=== PATIENT | female | born 1965 | race Caucasian/White ===

== ENCOUNTER → 2017-06-20 | Outpatient (CLI) | payer OTHER ==
[2016-08-22 07:00] VITALS: BP 137/71
[~2017-06-20] MED LIST: HYDR-1172 PO; HYDR-79 PO; KETO10TA PO; LEVO500T8 PO
--- NOTE | 2017-06-20 13:11 | KCIC ---
Right ankle and right foot radiograph June 20, 2017 INDICATION: Right foot and ankle pain COMPARISON: None available TECHNIQUE: 3 views the right foot and 3 views of the right ankle are provided. FINDINGS: There is no acute fracture or dislocation. Plantar and posterior calcaneal enthesophytes are present. Mild osteophytosis at the talonavicular articulation. Bone mineralization is within normal limits. Joint spaces are maintained. There is no soft tissue gas or osseous erosion. Tibial plafond and talar dome are intact. Ankle mortise is congruent. Reticulation of the subcutaneous soft tissues is suggestive of diffuse edema. IMPRESSION: No acute fracture or dislocation involving the right ankle and right foot. Posterior and plantar calcaneal enthesophytes are present. Diffuse subcutaneous edema. Electronically signed by: Cira Silvestre MD (06/20/2017 1:08 PM) [id number]
== END | disposition home or self-care (01) ==
LOC: KCIC 11:59
PROVIDERS: ATTEND Family Medicine
DX: M25.571 Pain in right ankle and joints of right foot (principal); R60.0 Localized edema
CPT/HCPCS: 73610; 73630

== ENCOUNTER 2019-04-29 07:24 | Emergency (ER) | payer OTHER ==
[~2019-04-29] VITALS: Ht 162.6 cm; Wt 108.9 kg
[~2019-04-29 07:24] MED LIST changes: -HYDR-1172 PO; -HYDR-79 PO; +HYDROCODONE-IB1 EAC3 PO; +HYDROCODONE-IB1 EACH PO
[2019-04-29 08:40] LABS: BASO % 0 % (0-3); EOS # 0.5 x10^3/uL (0.0-0.7); EOS % 4 % (0-3); HEMATOCRIT 43.3 % (36.0-47.0); HEMOGLOBIN 14.5 g/dL (12.0-15.5); LYMPH % 17 % (24-48); MEAN CORPUSCULAR HEMOGLOBIN 31 pg (25-35); MEAN CORPUSCULAR HGB CONC 34 g/dL (31-37); MEAN CORPUSCULAR VOLUME 92 fL (79-100); MONO # 0.9 x10^3/uL (0.0-1.1); MONO % 7 % (0-9); NEUT # 8.8 x10^3/uL (1.8-7.7); NEUT % 72 % (31-73); PLATELET COUNT 221 x10^3/uL (140-400); RED CELL DISTRIBUTION WIDTH 14.7 % (11.5-14.5); WHITE BLOOD COUNT 12.4 x10^3/uL (4.0-11.0)
--- NOTE | 2019-04-29 08:42 | PHYS DOC ---
Past Medical History Past Medical History: CVA, DVT, High Cholesterol, MRSA, TIA, Other Additional Past Medical Histor: De Santiago's palsy, OBESE, DERMATITIS Past Surgical History: Hysterectomy Additional Past Surgical Histo: Right eye, SINUS Alcohol Use: None Drug Use: None Adult General Chief Complaint Chief Complaint: LOWER EXTREMITY SWELLING HPI HPI Patient is a 53-year-old female who presents to the emergency department for evaluation. She states she normally has pedal edema, and normally wears compression stockings, but about 2 weeks ago, began developing swelling in her foot which was larger than normal, to the point that she was unable to wear compression stockings. She states that she has developed pain in her left medial calf, and has now extended up to the mid and distal thigh. She denies any numbness or weakness, or any prolonged immobilization. She has had a prior stroke in the past, and takes clopidogrel denies any chest pain or shortness of breath, dizziness or lightheadedness. She has not had any fevers or chills. Palpation and movement of the affected areas worsen her pain. There are no alleviating factors to her symptoms. Review of Systems Review of Systems Constitutional: Denies fever or chills [] Eyes: Denies change in visual acuity, redness, or eye pain [] HENT: Denies nasal congestion or sore throat [] Respiratory: Denies cough or shortness of breath [] Cardiovascular: The patient denies any shortness of breath, chest pain, palpitations, or orthopnea [] GI: Denies abdominal pain, nausea, vomiting, bloody stools or diarrhea [] : Denies dysuria or hematuria [] Musculoskeletal: Denies back pain or joint pain [] Integument: Denies rash or skin lesions, except as noted on the left leg [] Neurologic: Denies headache, focal weakness or sensory changes [] Endocrine: Denies polyuria or polydipsia [] All other systems were reviewed and found to be within normal limits, except as documented in this note. Current Medications Current Medications Current Medications Medications (Trade) Dose Ordered Sig/Diego Start Time Stop Time Status Last Admin Dose Admin Cephalexin HCl (Keflex) 500 mg 1X ONCE 04/29/19 09:30 04/29/19 09:43 DC 04/29/19 09:52 500 MG Rivaroxaban (Xarelto) 15 mg 1X ONCE 04/29/19 10:00 04/29/19 10:01 04/29/19 09:52 15 MG Allergies Allergies Allergies Coded Allergies Type Severity Reaction Last Updated Verified azithromycin Allergy Intermediate 08/18/16 Yes Physical Exam Physical Exam PHYSICAL EXAM: CONSTITUTIONAL: Well developed, well nourished HEAD: normocephalic, atraumatic EENT: PERRL, EOMI. Conjunctivae normal color, sclerae non-icteric; moist mucous membranes. NECK: Supple, non-tender; no meningismus. LUNGS: Lungs CTA, breathing even and unlabored. Normal air movement. HEART: Regular rate and rhythm, no murmur CHEST: No deformity; non-tender ABDOMEN: The abdomen is soft, and non-tender, no masses or bruits. EXTREM: Normal ROM; no deformity, Normal pulses palpable in all extremities. There is mild bilateral pedal edema. There is erythema on the medial left calf, extending towards the mid and distal left thigh, with a nodularity/palpable cord, in the area of erythema. There is tenderness to palpation in this area. There is a strong dorsalis pedis pulse. The remainder the extremities are otherwise unremarkable. SKIN: No rash; no diaphoresis NEURO: Alert; normal speech and cognition; CN's grossly intact; strength grossly intact without focal deficit. BACK: No CVA TTP. Current Patient Data Vital Signs Vital Signs Date Time Temp Pulse Resp B/P (MAP) Pulse Ox O2 Delivery O2 Flow Rate FiO2 04/29/19 09:13 86 18 171/81 (111) 96 Room Air 04/29/19 07:49 98.0 98.0 Lab Values Laboratory Tests Test 04/29/19 08:30 White Blood Count 12.4 x10^3/uL (4.0-11.0) H Red Blood Count 4.70 x10^6/uL (3.50-5.40) Hemoglobin 14.5 g/dL (12.0-15.5) Hematocrit 43.3 % (36.0-47.0) Mean Corpuscular Volume 92 fL (79-100) Mean Corpuscular Hemoglobin 31 pg (25-35) Mean Corpuscular Hemoglobin Concent 34 g/dL (31-37) Red Cell Distribution Width 14.7 % (11.5-14.5) H Platelet Count 221 x10^3/uL (140-400) Neutrophils (%) (Auto) 72 % (31-73) Lymphocytes (%) (Auto) 17 % (24-48) L Monocytes (%) (Auto) 7 % (0-9) Eosinophils (%) (Auto) 4 % (0-3) H Basophils (%) (Auto) 0 % (0-3) Neutrophils # (Auto) 8.8 x10^3/uL (1.8-7.7) H Lymphocytes # (Auto) 2.0 x10^3/uL (1.0-4.8) Monocytes # (Auto) 0.9 x10^3/uL (0.0-1.1) Eosinophils # (Auto) 0.5 x10^3/uL (0.0-0.7) Basophils # (Auto) 0.0 x10^3/uL (0.0-0.2) Erythrocyte Sedimentation Rate 23 (0-25) Prothrombin Time 12.6 SEC (11.7-14.0) Prothrombin Time INR 1.0 (0.8-1.1) Activated Partial Thromboplast Time 27 SEC (24-38) Sodium Level 145 mmol/L (136-145) Potassium Level 3.7 mmol/L (3.5-5.1) Chloride Level 108 mmol/L (98-107) H Carbon Dioxide Level 27 mmol/L (21-32) Anion Gap 10 (6-14) Blood Urea Nitrogen 12 mg/dL (7-20) Creatinine 0.9 mg/dL (0.6-1.0) Estimated GFR (Cockcroft-Gault) 65.5 Glucose Level 130 mg/dL (70-99) H Calcium Level 8.7 mg/dL (8.5-10.1) C-Reactive Protein, Quantitative 37.0 mg/L (0-3.3) H Laboratory Tests 04/29/19 08:30 Laboratory Tests 04/29/19 08:30 EKG EKG [] Radiology/Procedures Radiology/Procedures [PROCEDURE: VENOUS LOWER EXTREMITY LEFT Examination: Left Lower Extremity Venous Doppler Ultrasound History: Left leg pain, redness Comparison: 01/07/2014 Procedure: Garcia scale, color flow 2D and spectal waveform analysis images are obtained with and without compression in the area of the common femoral vein, superficial femoral vein - femoral vein junction, main femoral vein (superficial femoral vein) and popliteal vein. Veins of the proximal calf are also imaged. Findings: There is echogenicity identified in the left greater saphenous vein from mid thigh to ankle likely occlusive thrombus. Varicose veins identified from mid thigh to ankle which also demonstrated echogenicity within likely thrombosed varicose veins. The visualized common femoral vein, superficial femoral vein, popliteal vein, posterior tibialis vein appear patent Impression: 1. No evidence of deep venous thrombosis. 2. Occlusive thrombus identified in the greater saphenous vein from mid thigh to ankle level.. 3. Thrombosed varicose veins identified.] Course & Med Decision Making Course & Med Decision Making Pertinent Labs and Imaging studies reviewed. (See chart for details) []The patient's condition remains stable. Due to the propagation proximal that she has had of her clot, as well as the large segment involvement, I do believe that she warrants treatment with anticoagulation. I discussed test results with the patient, the need for close follow-up, warm compresses, NSAIDs, further outpatient evaluation and return precautions. Dragon Disclaimer Dragon Disclaimer This electronic medical record was generated, in whole or in part, using a voice recognition dictation system. Departure Departure Impression: Primary Impression: Saphenous vein thrombophlebitis Disposition: 01 HOME, SELF-CARE Condition: STABLE Referrals: CORONA AKHTAR MD (PCP) Patient Instructions: Phlebitis, Thrombocytopenia, [id number] Scripts Rivaroxaban (XARELTO) 10 Mg Tablet 1 TAB PO DAILY for 45 Days, #45 TAB Prov: JINNY MERRITT MD 04/29/19 Cephalexin (KEFLEX) 500 Mg Capsule 500 MG PO QID for 7 Days, #28 CAP Prov: JINNY MERRITT MD 04/29/19 JINNY MERRITT MD Apr 29, 2019 08:42
[2019-04-29 08:48] LABS: PROTHROMBIN TIME PATIENT 12.6 SEC (11.7-14.0)
[2019-04-29 08:50] LABS: CALCIUM 8.7 mg/dL (8.5-10.1); CREATININE 0.9 mg/dL (0.6-1.0); GFR 65.5; POTASSIUM 3.7 mmol/L (3.5-5.1)
--- NOTE | 2019-04-29 09:00 | RAD ---
Examination: Left Lower Extremity Venous Doppler Ultrasound History: Left leg pain, redness Comparison: 01/07/2014 Procedure: Garcia scale, color flow 2D and spectal waveform analysis images are obtained with and without compression in the area of the common femoral vein, superficial femoral vein - femoral vein junction, main femoral vein (superficial femoral vein) and popliteal vein. Veins of the proximal calf are also imaged. Findings: There is echogenicity identified in the left greater saphenous vein from mid thigh to ankle likely occlusive thrombus. Varicose veins identified from mid thigh to ankle which also demonstrated echogenicity within likely thrombosed varicose veins. The visualized common femoral vein, superficial femoral vein, popliteal vein, posterior tibialis vein appear patent Impression: 1. No evidence of deep venous thrombosis. 2. Occlusive thrombus identified in the greater saphenous vein from mid thigh to ankle level.. 3. Thrombosed varicose veins identified. Electronically signed by: Lupillo Al MD (04/29/2019 8:57 AM) [id number]
[2019-04-29 09:13] VITALS: BP 171/81
[2019-04-29] MEDS ORDERED: CEPHALEXIN 250 MG CAPSULE. PO ONE (09:30)
[2019-04-29] MEDS ORDERED: RIVA10TA PO (09:57)
[2019-04-29] MEDS ORDERED: CEPH-264 PO (09:57)
[2019-04-29] MEDS ORDERED: RIVAROXABAN 15 MG TABLET. PO ONE (10:00)
[2019-04-29] MEDS ORDERED: RIVAROXABAN 10 MG TABLET. PO ONE (10:00)
== END 2019-04-29 10:07 | disposition home or self-care (01) ==
LOC: ER 07:24
DX: I80.02 Phlebitis and thrombophlebitis of superficial vessels of left lower extremity (principal); E78.00 Pure hypercholesterolemia, unspecified; E66.9 Obesity, unspecified; Z68.41 Body mass index [BMI] 40.0-44.9, adult; Z90.710 Acquired absence of both cervix and uterus; Z86.718 Personal history of other venous thrombosis and embolism; Z86.73 Personal history of transient ischemic attack (TIA), and cerebral infarction without residual deficits; Z88.1 Allergy status to other antibiotic agents
CPT/HCPCS: 36415; 80048; 85025; 85610; 85651; 85730; 86140; 87040; 93971; 99285-25

== ENCOUNTER → 2021-04-07 | Outpatient (CLI) | payer OTHER ==
[~2021-04-07] MED LIST changes: +CEPH-264 PO; +RIVA10TA PO
[2021-04-07 16:31] LABS: BASO % 1 % (0-3); EOS # 0.5 x10^3/uL (0.0-0.7); EOS % 5 % (0-3); HEMATOCRIT 49.7 % (36.0-47.0); HEMOGLOBIN 16.6 g/dL (12.0-15.5); LYMPH # 2.2 x10^3/uL (1.0-4.8); LYMPH % 23 % (24-48); MEAN CORPUSCULAR HEMOGLOBIN 30 pg (25-35); MEAN CORPUSCULAR HGB CONC 33 g/dL (31-37); MEAN CORPUSCULAR VOLUME 91 fL (79-100); MONO # 0.7 x10^3/uL (0.0-1.1); MONO % 8 % (0-9); NEUT # 6.3 x10^3/uL (1.8-7.7); NEUT % 64 % (31-73); PLATELET COUNT 254 x10^3/uL (140-400); RED BLOOD COUNT 5.44 x10^6/uL (3.50-5.40); RED CELL DISTRIBUTION WIDTH 15.4 % (11.5-14.5); WHITE BLOOD COUNT 9.7 x10^3/uL (4.0-11.0)
[2021-04-07 17:06] LABS: PLT ESTIMATE ADEQUATE (ADEQUATE)
== END ==
LOC: ONCLAB 16:06
PROVIDERS: ATTEND Internal Medicine Hematology & Oncology
DX: D45 Polycythemia vera (principal)
CPT/HCPCS: 36415; 81270; 82607; 82668; 82728; 82746; 83540; 83550; 85025